=== PATIENT | female | born 1955 | race Asian ===

== ENCOUNTER → 2016-10-26 | Outpatient (CLI) | payer BC, OTHER ==
--- NOTE | 2016-10-26 12:15 | RAD ---
DATE: 10/26/2016 EXAM: MAMMO SE SCREENING BILATERAL HISTORY: Routine screening COMPARISON: 10/25/2015 This study was interpreted with the benefit of Computerized Aided Detection (CAD). The breast parenchyma is heterogeneously dense, which could reduce sensitivity of mammography. Breast parenchyma level C. FINDINGS: 2-D and 3-D tomosynthesis imaging was performed in CC and MLO projections. No new or enlarging breast densities are seen. No suspicious microcalcifications are evident. IMPRESSION: Stable mammograms without evidence of malignancy. BI-RADS CATEGORY: 2 BENIGN FINDING(S) RECOMMENDED FOLLOW-UP: 12M 12 MONTH FOLLOW-UP PQRS compliance statement: Patient information was entered into a reminder system with a target due date for the next mammogram. Mammography is a sensitive method for finding small breast cancers, but it does not detect them all and is not a substitute for careful clinical examination. A negative mammogram does not negate a clinically suspicious finding and should not result in delay in biopsying a clinically suspicious abnormality. "Our facility is accredited by the [employer] Mammography [employer]."
== END | disposition home or self-care (01) ==
LOC: MAMMO 08:54
PROVIDERS: ATTEND Specialist
DX: Z12.31 Encounter for screening mammogram for malignant neoplasm of breast (principal)
CPT/HCPCS: 77063; G0202; 77067

== ENCOUNTER → 2017-10-29 | Outpatient (CLI) | payer BC, OTHER ==
--- NOTE | 2017-10-29 11:52 | RAD ---
DATE: 10/29/2017 EXAM: DIGITAL SCREEN BILAT W/CAD HISTORY: Routine screening COMPARISON: 10/26/2016 This study was interpreted with the benefit of Computerized Aided Detection (CAD). The breast parenchyma is heterogeneously dense, which could reduce sensitivity of mammography. Breast parenchyma level C. FINDINGS: 2-D and 3-D tomosynthesis imaging was performed in CC and MLO projections. No new or enlarging breast densities are seen. No suspicious microcalcifications are evident. IMPRESSION: Stable mammograms without evidence of malignancy. BI-RADS CATEGORY: 1 NEGATIVE RECOMMENDED FOLLOW-UP: 12M 12 MONTH FOLLOW-UP PQRS compliance statement: Patient information was entered into a reminder system with a target due date for the next mammogram. Mammography is a sensitive method for finding small breast cancers, but it does not detect them all and is not a substitute for careful clinical examination. A negative mammogram does not negate a clinically suspicious finding and should not result in delay in biopsying a clinically suspicious abnormality. "Our facility is accredited by the [employer] Mammography [employer]."
== END | disposition home or self-care (01) ==
LOC: MAMMO 10:58
PROVIDERS: ATTEND Specialist
DX: Z12.31 Encounter for screening mammogram for malignant neoplasm of breast (principal)
CPT/HCPCS: 77067

== ENCOUNTER → 2018-11-08 | Outpatient (CLI) | payer BC, OTHER ==
--- NOTE | 2018-11-08 11:22 | RAD ---
DATE: 11/08/2018 EXAM: MAMMO SE SCREENING BILATERAL HISTORY: Routine screening. COMPARISON: Previous mammogram from 2018 and 2017. This study was interpreted with the benefit of Computerized Aided Detection (CAD). FINDINGS: Breast Density: HETERO The breast parenchyma Is heterogeneously dense, which could reduce sensitivity of mammography. Breast parenchyma level C. The skin and nipples are within normal limits. No suspicious calcifications, spiculated mass or area of architectural distortion. IMPRESSION: No mammographic evidence of malignancy. BI-RADS CATEGORY: 1 NEGATIVE RECOMMENDED FOLLOW-UP: 12M 12 MONTH FOLLOW-UP PQRS compliance statement: Patient information was entered into a reminder system with a target due date for the next mammogram. Mammography is a sensitive method for finding small breast cancers, but it does not detect them all and is not a substitute for careful clinical examination. A negative mammogram does not negate a clinically suspicious finding and should not result in delay in biopsying a clinically suspicious abnormality. "Our facility is accredited by the [employer] Mammography [employer]."
== END | disposition home or self-care (01) ==
LOC: MAMMO 10:38
PROVIDERS: ATTEND Specialist
DX: Z12.31 Encounter for screening mammogram for malignant neoplasm of breast (principal)
CPT/HCPCS: 77063; 77067

== ENCOUNTER → 2019-11-10 | Outpatient (CLI) | payer BC, OTHER ==
--- NOTE | 2019-11-10 18:07 | RAD ---
DATE: 11/10/2019 11:25 AM EXAM: MAMMO SE SCREENING BILATERAL HISTORY: Screening COMPARISON: 11/08/2018, 10/29/2017 Bilateral CC and MLO views of the breasts were performed. Bilateral breast tomosynthesis was performed in CC and MLO projections. This study was interpreted with the benefit of Computerized Aided Detection (CAD). FINDINGS: Breast Density: HETERO The breast parenchyma Is heterogeneously dense, which could reduce sensitivity of mammography. Breast parenchyma level C No suspicious masses, microcalcifications or architectural distortion is present to suggest malignancy in either breast. The visualized axillae are unremarkable. IMPRESSION: No mammographic evidence of malignancy. BI-RADS CATEGORY: 1 NEGATIVE RECOMMENDED FOLLOW-UP: 12M 12 MONTH FOLLOW-UP Annual screening mammography is recommended, unless clinically indicated sooner based on symptoms or change in physical exam. PQRS compliance statement: Patient information was entered into a reminder system with a target due date for the next mammogram. Mammography is a sensitive method for finding small breast cancers, but it does not detect them all and is not a substitute for careful clinical examination. A negative mammogram does not negate a clinically suspicious finding and should not result in delay in biopsying a clinically suspicious abnormality. "Our facility is accredited by the [employer] Mammography [employer]."
== END | disposition home or self-care (01) ==
LOC: MAMMO 11:21
PROVIDERS: ATTEND Specialist
DX: Z12.31 Encounter for screening mammogram for malignant neoplasm of breast (principal)
CPT/HCPCS: 77063; 77067

== ENCOUNTER → 2020-11-12 | Outpatient (CLI) | payer MEDICARE, OTHER ==
--- NOTE | 2020-11-12 14:56 | RAD ---
EXAM: BILATERAL DIGITAL 3D SCREENING MAMMOGRAPHY. HISTORY: Routine mammographic screening. TECHNIQUE: Bilateral digital 3D and tomographic images were obtained in CC and MLO projections. Compu ter-aided detection was applied. COMPARISON: 11/10/2019, 11/08/2017. COMPOSITION: C. The breasts are heterogeneously dense, which may obscure small masses. FINDINGS: There is a new elongated nodule in the posterior third superiorly on the right MLO view. Th is may be lateral to the [id number] on the CC projection. Alternatively, it may correspond with a linear density at the nipple line. On the left, there is a new asymmetry superiorly on the left MLO view best seen on tomosynthesis. Thi s may correspond with the new density slightly medially and posteriorly on the CC view. See annotatio ns. BI-RADS CATEGORY 0: Incomplete--Needs Additional Imaging Evaluation. RECOMMENDATION: 1. Exaggerated lateral CC view on the right. Spot compression of density is superiorly on the right M LO view and at the nipple line on the CC view. Sonography if necessary. 2. Spot compression of new densities superiorly and posterior medially on the left. Sonography if nec essary. Electronically signed by: Micheal Castro MD (11/12/2020 2:54 PM) [id number]
== END ==
LOC: MAMMO 08:31
PROVIDERS: ATTEND Specialist
DX: Z12.31 Encounter for screening mammogram for malignant neoplasm of breast (principal); N63.10 Unspecified lump in the right breast, unspecified quadrant
CPT/HCPCS: 77063; 77067

== ENCOUNTER → 2020-11-30 | Outpatient (CLI) | payer MEDICARE, OTHER ==
--- NOTE | 2020-11-30 16:24 | RAD ---
US BREAST LTD JOSAFAT, MG DIGITAL BILAT DIAGNOSTIC MAMMO WITH SE 11/30/2020 2:00 PM INDICATION: Asymptomatic screening mammogram. COMPARISON: Mammogram 11/12/2020 TECHNIQUE: Full field true lateral view of the right breast as well as XCCL view of the right breast obtained. Full field true lateral view of the left breast including spot compression CC and MLO views of the left breast were obtained. Spot compression MLO and XCCL views of the right breast were obtai aaron. FINDINGS: Spot compression of the right exaggerated lateral CC view reveals a isodense mass with circumscribed margins. Targeted sonographic evaluation was performed. At the 9:00 position, 5 cm from the nipple th ere is a cluster of cysts measuring 9 x 2 x 8 mm. This may represent a complex or complicated cyst. 3 month follow-up ultrasound evaluation is recommended. There are additional nonenlarged intramammary lymph nodes measuring up to 4 mm with normal cortical thickness and fatty hilum. Spot compression CC and MLO views of the left breast with persistent high density mass with indistinc t margins. Targeted sonographic evaluation of the left breast at the 11:00 position, 5 cm from the ni pple was performed. There is a spiculated mass without significant posterior acoustic characteristics . Mass is not parallel. Findings are suspicious for primary breast malignancy. Further management wit h ultrasound-guided core needle biopsy is recommended. Mass measures 8 x 7 x 6 mm. This was discussed with the ordering physician Dr. Wilkerson at 2:25 PM on 11/30/2020. A prescription for ultrasound-siri ded core needle biopsy will be provided to the patient. IMPRESSION: 1. Suspicious findings in the left breast with a 8 x 7 x 6 mm spiculated mass at the 11:00 position, 5 cm from the nipple. Ultrasound-guided core needle biopsy is recommended. 2. Probably benign findings in the right breast with either a cluster of cysts versus complicated or complex cyst at the 9:00 position, 5 cm from the nipple measuring 9 x 2 x 8 mm. 3 month follow-up ult rasound is recommended. BI-RADS category: 4; Suspicious Recommendations: Ultrasound-guided core needle biopsy of the left breast. 3 month follow-up imaging o f the right breast. Electronically signed by: Bertha Guzmán MD (11/30/2020 4:21 PM) [id number]
== END ==
LOC: MAMMO 12:49
PROVIDERS: ATTEND Specialist
DX: R92.2 Inconclusive mammogram (principal); R92.8 Other abnormal and inconclusive findings on diagnostic imaging of breast
CPT/HCPCS: 76642; 77066; G0279; 77062